=== PATIENT | male | born 1940 | race Caucasian/White ===

== ENCOUNTER 2018-12-17 09:02 | Day surgery (SDC) | payer MEDICARE ==
[~2018-12-17 09:02] MED LIST: ACETAMINOPHEN 1,000 MG/100 ML BTL IVPB ONE
[2018-12-17] MEDS ORDERED: PROPOFOL 10 MG/ML VIAL IV ONE (09:03)
[2018-12-17] MEDS ORDERED: SEVOFLURANE 250 ML INH ONE (09:03)
[2018-12-17] MEDS ORDERED: LIDOCAINE 2% MDV (20MG/ML) 20ML VIAL IV ONE (09:03)
[2018-12-17] MEDS ORDERED: MIDAZOLAM HCL 2MG/2ML VIAL IV ONE (09:03)
[2018-12-17] MEDS ORDERED: FENTANYL PF 100MCG/2ML VIAL IV ONE (09:03)
[2018-12-17] MEDS ORDERED: ONDANSETRON HCL IV 4 MG/2 ML VIAL IVP ONE (09:03)
[2018-12-17] MEDS ORDERED: KETOROLAC 30 MG/ML VIAL IVP ONE (09:03)
[2018-12-17] MEDS ORDERED: RINGERS SOLUTION,LACTATED 1,000 ML IV ONE (10:10)
[2018-12-17] MEDS ORDERED: ACETAMINOPHEN W/ CODEINE 300MG/30MG TABLET PO ONE (12:46)
--- NOTE | 2018-12-19 08:40 | Operative Note ---
DATE OF SURGERY: 12/17/2018 SURGEON: Mika Mojica DO PREOPERATIVE DIAGNOSIS: De Quervain's stenosing tenosynovitis of the left wrist. POSTOPERATIVE DIAGNOSIS: De Quervain's stenosing tenosynovitis of the left wrist. OPERATION: De Quervain's fasciotomy of the left wrist. DESCRIPTION OF PROCEDURE: This 78-year-old male was taken to the operating room and placed in the supine position on the operating room table. General anterior was induced. The left upper extremity was elevated. It was prepped with Hibiclens and draped in the usual sterile fashion. It was exsanguinated and the tourniquet inflated to 250 mmHg. A transverse incision was made 1 cm proximal to the tip of the radial styloid and radial aspect of the wrist. Dissection was carried down through the skin and subcutaneous tissues. Superficial vessels were coagulated. The radial nerve was identified and retracted safely. The first dorsal compartment was easily identified and this was incised to free up the abductor longus. The extensor was seen to be going through a separate compartment within the 1st dorsal compartment, and this was opened to free this tendon. With all tendons then free from proximal to distal, the wound was irrigated and the thumb was moved and the tendons moved freely within the 1st dorsal compartment. The wound was again irrigated and hemostasis obtained with the electrocautery. The wound closed with 4-0 Vicryl and running 4-0 nylon suture in the skin. Sterile dressings applied and the patient taken to the recovery room in satisfactory condition. SADE
== END 2018-12-17 13:10 | disposition home or self-care (01) ==
LOC: SUR 09:02
PROVIDERS: ATTEND Orthopaedic Surgery
DX: M65.4 Radial styloid tenosynovitis [de Quervain] (principal); E78.00 Pure hypercholesterolemia, unspecified; J44.9 Chronic obstructive pulmonary disease, unspecified; Z86.12 Personal history of poliomyelitis
CPT/HCPCS: J1885; J2405; J7120